=== PATIENT | male | born 1990 | race Caucasian/White ===

== ENCOUNTER 2019-04-27 20:37 | Emergency (ER) | payer MEDICAID ==
[2019-04-27] MEDS: DIPHTH/TET/ACEL PERTUSS (ADULT) 0.5 ML VIAL IM* (22:29)
[2019-04-28] MEDS: BACITRACIN/POLYMYXIN 28.35 GM OINT TOP (00:16)
[2019-04-28] MEDS: HYDROCODONE/APAP (5/325) TAB PO (00:16)
== END 2019-04-28 00:44 | disposition home or self-care (01) ==
LOC: E/R 04-28 00:44
DX: S05.11XA Contusion of eyeball and orbital tissues, right eye, initial encounter (principal); S09.90XA Unspecified injury of head, initial encounter; Q28.2 Arteriovenous malformation of cerebral vessels; H02.843 Edema of right eye, unspecified eyelid; W01.0XXA Fall on same level from slipping, tripping and stumbling without subsequent striking against object, initial encounter; Y92.9 Unspecified place or not applicable
CPT/HCPCS: 70450; 70486; 90715; 99283

== ENCOUNTER → 2019-05-01 | Emergency (ER) | payer MEDICAID | END | disposition home or self-care (01) | LOC: FTE 10:02 | DX: S00.11XA Contusion of right eyelid and periocular area, initial encounter (principal); F17.210 Nicotine dependence, cigarettes, uncomplicated; W19.XXXA Unspecified fall, initial encounter; Y92.9 Unspecified place or not applicable | CPT/HCPCS: 70486; 99284-25 ==